=== PATIENT | female | born 1935 | race Two or more races ===

== ENCOUNTER 2017-11-17 07:34 | Outpatient (CLI) | payer MEDICARE, OTHER ==
[2017-11-17] MEDS ORDERED: REGADENOSON 0.4 MG/5 ML DISP.SYRIN IVP ONE (08:30)
== END 2017-11-17 23:59 | disposition home or self-care (01) ==
LOC: NM 07:34
PROVIDERS: ATTEND Internal Medicine Interventional Cardiology
DX: I10 Essential (primary) hypertension (principal); R06.00 Dyspnea, unspecified
CPT/HCPCS: 78452; A9502; J2785

== ENCOUNTER 2017-12-30 13:59 | Outpatient (CLI) | payer MEDICARE, OTHER | END 2017-12-30 23:59 | disposition home or self-care (01) | LOC: WOU 13:59 | PROVIDERS: ATTEND Podiatrist Foot & Ankle Surgery | DX: S91.115A Laceration without foreign body of left lesser toe(s) without damage to nail, initial encounter (principal); L03.115 Cellulitis of right lower limb; X58.XXXA Exposure to other specified factors, initial encounter; Y93.E8 Activity, other personal hygiene; Y92.89 Other specified places as the place of occurrence of the external cause; B35.1 Tinea unguium; I10 Essential (primary) hypertension; I25.10 Atherosclerotic heart disease of native coronary artery without angina pectoris; Z79.82 Long term (current) use of aspirin; Z79.899 Other long term (current) drug therapy | CPT/HCPCS: 17250; A6402; J3490; Z7610 ==

== ENCOUNTER 2018-01-06 13:09 | Outpatient (CLI) | payer MEDICARE, OTHER | END 2018-01-06 23:59 | disposition home or self-care (01) | LOC: WOU 13:09 | PROVIDERS: ATTEND Podiatrist Foot & Ankle Surgery | DX: S91.114D Laceration without foreign body of right lesser toe(s) without damage to nail, subsequent encounter (principal); L03.031 Cellulitis of right toe; W45.8XXD Other foreign body or object entering through skin, subsequent encounter; L84 Corns and callosities | CPT/HCPCS: G0463; Z7610 ==

== ENCOUNTER 2018-09-19 12:30 | Outpatient (CLI) | payer MEDICARE, OTHER | END 2018-09-19 23:59 | disposition home or self-care (01) | LOC: VASLAB 12:30 | PROVIDERS: ATTEND Surgery Vascular Surgery | DX: M25.572 Pain in left ankle and joints of left foot (principal); I83.90 Asymptomatic varicose veins of unspecified lower extremity; I10 Essential (primary) hypertension | CPT/HCPCS: G0463 ==

== ENCOUNTER 2018-09-21 09:29 | Outpatient (CLI) | payer MEDICARE, OTHER | END 2018-09-21 23:59 | disposition home or self-care (01) | LOC: WOU 09:29 | PROVIDERS: ATTEND Surgery Vascular Surgery | DX: I83.813 Varicose veins of bilateral lower extremities with pain (principal) | CPT/HCPCS: 93970-TC ==